=== PATIENT | female | born 1980 | race African-American/Black ===

== ENCOUNTER 2019-10-15 01:08 | Emergency (ER) | payer OTHER ==
[~2019-10-15] VITALS: Ht 175.3 cm; Wt 68.0 kg
[2019-10-15 02:24] LABS: BASOPHILS 0.8 % (0.0-2.0); HEMATOCRIT 37.9 % (37.0-47.0); HEMOGLOBIN 12.5 gm/dL (12.0-15.0); LYMPHOCYTES 22.8 % (24.0-44.0); MCH 29.5 pg (26.0-34.0); MCHC 32.9 g/dL (28.0-37.0); MCV 89.7 fL (80.0-100.0); MONOCYTES 5.4 % (1.0-8.0); PLATELET COUNT 340 thou/uL (150-400); RBC 4.23 mil/uL (4.20-5.00); RDW 15.5 % (10.5-14.5); WBC 8.5 thou/uL (4.0-11.0)
[2019-10-15 02:31] LABS: ANION GAP 10 mmol/L (7-16); BUN 13 mg/dL (7-18); CALCIUM 8.9 mg/dL (8.5-10.1); CHLORIDE 99 mmol/L (98-107); CO2 27 mmol/L (21-32); CREATININE 0.8 mg/dL (0.6-1.0); GLUCOSE 80 mg/dL (74-106); POTASSIUM 3.5 mmol/L (3.5-5.1); SODIUM 136 mmol/L (136-145)
[2019-10-15 02:40] LABS: TROPONIN-I <0.06 ng/mL (<0.06)
[2019-10-15 04:34] VITALS: BP 159/87
--- NOTE | 2019-10-16 09:54 | EKG ---
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[place] : 1980 Requested By: Sonu Alegria Order Number: [id number] MD: Clyde Nolasco Measurements Intervals [place] Rate: 96 P: 82 MO: 137 QRS: 20 QRSD: 77 T: 26 QT: 377 QTc: 477 Interpretive Statements Sinus rhythm Borderline prolonged QT interval Baseline wander in lead(s) II,III,aVR,aVF No previous ECG available for comparison Electronically Signed On 10-16-2019 9:54:26 [employer] by Clyde Nolasco [email or web address] <ELECTRONICALLY SIGNED> By: Clyde Nolasco MD, [facility] 10/16/19 [id number] Clyde Nolasco MD, FACC /EPI
== END 2019-10-15 04:00 | disposition home or self-care (01) ==
LOC: ER 01:08
PROVIDERS: Emergency Medicine
DX: R07.9 Chest pain, unspecified (principal); I10 Essential (primary) hypertension; F41.9 Anxiety disorder, unspecified; Z87.891 Personal history of nicotine dependence; Z88.0 Allergy status to penicillin